=== PATIENT | female | born 1970 | race Caucasian/White ===

== ENCOUNTER 2020-11-18 06:19 | Day surgery (SDC) | payer BC ==
[2020-11-17 12:49] VITALS: BMI 34.0
[2020-11-18] MEDS ORDERED: BUPIVACAINE HCL/PF 0.25% (2.5MG/ML) 10 ML VIAL ONE (07:16)
[2020-11-18] MEDS ORDERED: LIDOCAINE HCL 1%, 10 MG/ML (20ML VIAL) ONE (07:17)
[2020-11-18] MEDS ORDERED: LIDOCAINE 1%/EPI 1:100000 (20 ML MULTI DOSE VIAL) ONE (07:29)
[2020-11-18] MEDS ORDERED: LIDOCAINE HCL 2% JELLY (5 ML/TUBE) ONE (07:59)
[2020-11-18] MEDS ORDERED: DEXAMETHASONE SOD PHOSPHATE 4 MG/1 ML VIAL ONE (07:59)
[2020-11-18] MEDS ORDERED: ONDANSETRON 4 MG/2 ML VIAL ONE (07:59)
[2020-11-18] MEDS ORDERED: ceFAZolin SODIUM 1 GM VIAL ONE (07:59)
[2020-11-18] MEDS ORDERED: KETOROLAC TROMETHAMINE 30 MG/1 ML VIAL ONE (07:59)
[2020-11-18] MEDS ORDERED: MIDAZOLAM HCL 2 MG/2 ML SINGLE DOSE VIAL ONE (08:00)
[2020-11-18] MEDS ORDERED: ROCURONIUM BROMIDE 50 MG/5 ML SYRINGE ONE (08:00)
[2020-11-18] MEDS ORDERED: PROPOFOL 20 ML ONE ×7 (08:00→10:16)
[2020-11-18] MEDS ORDERED: fentaNYL CITRATE 250 MCG/5 ML VIAL ONE (08:00)
[2020-11-18] MEDS ORDERED: SUCCINYLCHOLINE CHLORIDE 200 MG/10 ML SYRINGE ONE (08:00)
[2020-11-18] MEDS ORDERED: SCOPOLAMINE HYDROBROMIDE 1 PATCH PATCH.TD72 ONE (08:04)
[2020-11-18] MEDS ORDERED: BUPIVACAINE HCL/PF 2.5 MG/ML - 30 ML VIAL IJ ONE (08:26)
[2020-11-18] MEDS ORDERED: HYDROmorphone HCL/PF 1 MG/ML VIAL ONE ×2 (08:56)
[2020-11-18] MEDS ORDERED: GUM MASTIC/STORAX/MSAL/ALCOHOL 1 DRP DROPSBTL MC ONE (11:00)
[2020-11-18] MEDS ORDERED: ONDANSETRON 4 MG/2 ML VIAL IVPUSH PRN (11:29)
[2020-11-18] MEDS ORDERED: PROMETHAZINE HCL 25 MG/1 ML VIAL IVPUSH PRN (11:29)
[2020-11-18] MEDS ORDERED: oxyCODONE HCL 5 MG TABLET PO PRN ×2 (11:29)
[2020-11-18 12:41] VITALS: BP 129/74; PULSE 79; TEMP 97.5
== END 2020-11-18 13:00 | disposition home or self-care (01) ==
LOC: FASU 06:19
PROVIDERS: ATTEND Plastic Surgery
PROC: 0HBV0ZZ Excision of Bilateral Breast, Open Approach (ICD-10-PCS; principal; 2020-11-18 08:38)
DX: N62 Hypertrophy of breast (principal)
CPT/HCPCS: 88305-TC; 94760